=== PATIENT | male | born 1935 | race Hispanic/Latino ===

== ENCOUNTER 2016-10-25 18:16 | Emergency (ER) | payer MEDICARE, MEDICAID ==
[~2016-10-25] VITALS: Ht 165.1 cm; Wt 84.5 kg
[~2016-10-25 18:16] MED LIST: ASPI500T8 PO; CYCL1DRO BOTH_EYES; FINA5TAB9 PO; LISI-567 PO; NPR500T PO
[2016-10-25 18:29] VITALS: BP 154/76; PULSE 65; RESP 16; O2SAT 96
[2016-10-25] MEDS ORDERED: 0.9% Sodium Chloride 1,000 ML IV ONE (19:48)
--- NOTE | 2016-10-25 19:48 | ED.REPORT ---
HPI-General Illness Date of Service Oct 25, 2016 ED Provider: Onel Ledbetter MD A 80 year old male with a history of hypertension, high cholesterol and benign prostate hypertrophy presents to the ED complaining of waxing and waning abdominal pain. The pain is concentrated in the LLQ and occasionally radiates to his back. Describes as aching and sharp. No notable alleviating or exacerbating factors. The pt denies right-sided abdominal pain, chest pain, shortness of breath, headache, black or bloody stools, or vision changes. The pt has been experiencing this pain for one month but has worsened in the last two weeks. He decided to seek medical care today because the pain worsened. Nursing Notes Stated Complaint: ABDOMINAL PAIN Chief Complaint: Male Abdominal Pain Nursing Notes Reviewed: Yes Allergies: Coded Allergies: No Known Allergies (Verified , 06/20/15) Scheduled Aspirin EC (Aspirin EC) 500 Mg Tablet.dr 81 MG PO DAILY Cyclosporine (Restasis) 1 Each Droperette 1 DROP BOTH_EYES BID Finasteride (Finasteride) 5 Mg Tablet 5 MG PO HS Lisinopril (Lisinopril) 20 Mg Tablet 20 MG PO HS Scheduled PRN Naproxen (Naproxen) 500 Mg Tab 500 MG PO Q6H PRN PRN For Pain General Time Seen by MD: 19:44 Chief Complaint Abdominal pain Hx Obtained From: Patient Arrived By: Walk-in Sudden in Onset?: No Onset Occurred: More than a week ago... Symptom Duration: Waxes and wanes Location: : Abdomen Quality: Painful Radiation: : Back Severity: Current: No pain currently Recent Healthcare: No recent hospitalization, Recent doctor visit Similar Sx Previous: No Past Medical History Past Medical History Notes: PCP: Dr. Ledbetter Past Medical History Hypertension Benign prostatic hypertrophy Decreased hearing High cholesterol Past Surgical History None Smoking History Never Smoker Social History Alcohol Use: Denies alcohol use Drug Use: Denies drug use Other Social History: Good social support Ambulatory Status Independent Review of Systems denies black or bloody stools Full Review of Systems Respiratory: Denies: Non-productive cough, Shortness of breath Cardiovascular: Denies: Chest pain GI: Reports: Abdominal pain, Denies: Vomiting Musculoskeletal: Reports: Back pain Skin: Denies Rash Neurologic: Denies: Headache, Vision change Complete sys rev & neg: except as marked. Physical Exam Constitutional: Well-developed, well-nourished. Not diaphoretic. Head: Normocephalic and atraumatic. Mouth/Throat: Oropharynx is clear and moist. No oropharyngeal exudate. Eyes: EOM are normal. Pupils are equal, round, and reactive to light. Neck: Supple, no tracheal deviation. Cardiovascular: Normal rate, regular rhythm. Equal and intact distal pulses throughout. Pulmonary/Chest: Effort normal and breath sounds normal. No respiratory distress. Abdominal: Soft. No distension. There is no point tenderness to palpation, rebound, or guarding. Bowel sounds present. Musculoskeletal: Range of motion grossly intact, moving all extremities. No edema or tenderness appreciated. Neurological: AOx3. Grossly nonfocal exam. Strength and sensation intact and equal to bilateral upper and lower extremities. Skin: Warm and dry, no rashes or pallor appreciated. Psychiatric: Appropriate mood and affect. Behavior appears normal. Vital Signs Vital Signs Date Time Temp Pulse Resp B/P Pulse Ox O2 Delivery O2 Flow Rate FiO2 10/26/16 00:55 37.2 62 16 155/86 97 Room Air 10/26/16 00:44 37.2 62 16 155/86 97 Room Air 10/25/16 18:29 36.9 65 16 154/76 96 Room Air Initial VS: Reviewed Interpretation & Diagnostics Interpretation & Diagnostics: Abdominal US report per US social services technician: gallbladder wall 4 mm, concern for acute cholecystitis no gallstones negative sonographic Hughes's sign Lab Results Interpretation Result Diagram: 10/25/16199910/25/161999 Test 10/25/16 19:55 10/25/16 20:00 Urine Color Yellow (YELLOW) Urine Appearance Clear (CLEAR,HAZY) Urine pH 6.0 (5.0-8.0) Urine Specific [place] 1.005 (1.003-1.035) Urine Protein Negativemg/dL (NEG,TRACE) Urine Glucose (UA) Negativemg/dL (NEGATIVE) Urine Ketones Negativemg/dL (NEGATIVE) Urine Occult Blood Negative (NEGATIVE) Urine Nitrite Negative (NEGATIVE) Urine Bilirubin Negative (NEGATIVE) Urine Urobilinogen Normalmg/dL (NORMAL) Urine Leukocyte Esterase Small (NEGATIVE) Urine RBC 0-2/hpf (0-2) Urine WBC 6-10/hpf (0-5) Urine Epithelial Cells Occasional/hpf (NONE-MOD) Urine Crystals None seen (NONE SEEN) Urine Bacteria Few/hpf (NONE-FEW) Urine Hyaline Casts None/lpf (NONE) Urine Granular Casts None seen (NONE SEEN) Urine Waxy Casts None seen (NONE SEEN) Urine Red Blood Cell Casts None seen (NONE SEEN) Urine White Blood Cell Casts None seen (NONE SEEN) Urine Mucus None seen (None Seen) Urine Trichomonas None seen (NONE SEEN) Urine Yeast None (NONE SEEN) Urinalysis Comment None Urine Culture Reflexed Indicated White Blood Count 7.2th/mm3 (3.8-10.1) Red Blood Count 4.92mil/mm3 (4.40-5.80) Hemoglobin 15.0g/dL (13.8-17.2) Hematocrit 43.3% (41.0-50.0) Mean Corpuscular Volume 88.0fL (81-100) Mean Corpuscular Hemoglobin 30.5pg (27.0-35.0) Mean Corpuscular Hemoglobin Concent 34.6% (32.0-37.0) Red Cell Distribution Width 12.7% (12.3-15.4) Platelet Count 180bil/L (150-400) Neutrophils (%) (Auto) 52.3% (40-74) Lymphocytes (%) (Auto) 30.2% (14-46) Monocytes (%) (Auto) 11.3% (4-12) Eosinophils (%) (Auto) 5.7% (0-5) Basophils (%) (Auto) 0.4% (0-3) Prothrombin Time 10.3sec (8.1-12.5) Prothromb Time International Ratio 0.96ratio Sodium Level 137mEq/L (134-144) Potassium Level 4.2mEq/L (3.5-5.2) Chloride Level 101mEq/L (97-108) Carbon Dioxide Level 21mmol/L (18-29) Blood Urea Nitrogen 12mg/dL (8-27) Creatinine 0.66mg/dL (0.76-1.27) Estimat Glomerular Filtration Rate 124mL/min (>59) Glucose Level 95mg/dL (60-99) Lactic Acid Level 1.0mmol/L (0.4-2.0) Calcium Level 9.3mg/dL (8.5-10.1) Magnesium Level 2.2mg/dL (1.6-2.6) Total Bilirubin 0.7mg/dL (0.0-1.2) Aspartate Amino Transf (AST/SGOT) 122U/L (0-50) Alanine Aminotransferase (ALT/SGPT) 314U/L (0-44) Alkaline Phosphatase 88U/L (25-160) Total Protein 7.7g/dL (6.4-8.4) Albumin 4.1g/dL (3.4-5.0) Lipase 24U/L (13-60) ECG Interpretation ECG Interpretation: normal sinus rhythm with a rate of 55 left axis deviation Time: 20:27 Interpreted by: ED physician CT Abd / Pelvis Interpretation IMPRESSION: 1. Colonic diverticulosis. No CT findings to suggest acute diverticulitis. 2. A 3 mm cortical calcification in the right kidney. No hydronephrosis. 3. Enlarged prostate. Dictated by: Blade Carlos M.D. on 10/25/2016 at 21:38 Approved by: Blade Carlos M.D. on 10/25/2016 at 21:45 Interpretation / Wet Read by: Interpret - Radiologist Re-Eval/Medical Decision Med Decision/Clinical Course CBC and CMP grossly within normal limits with the exception of the patient's LFTs; AST of 122, ALT of 314. CT of the patient's abdomen as per above, reviewed; she does have some diverticulosis, however no evidence of diverticulitis and not consistent with his exam. Given her elevated LFTs, decision made to obtain an ultrasound of the patient's gallbladder. The gallbladder wall is thickened to approximate 4 mm, however no sonographic Hughes sign, no pericholecystic fluid. I discussed these findings with Dr. Escobedo as noted below. Discussed plan with the patient at length and need for close outpatient follow-up. He does have a mild urinary tract infection and I plan to treat this with ciprofloxacin. Careful return precautions were discussed at length; patient agreeable to the plan as stated, no further questions. Time of Eval: 00:21 Patient Status: Condition improved Re-Evaluation/Progress Note: Pt rechecked, who is resting comfortably. The diagnosis and plan for discharge are discussed. The pt understands and agrees with the plan. All questions are addressed at this time. Consultation : Referral / Consult Name: Gunnar Escobedo MD Consulted With: Surgeon Call Returned at: 00:11 Road Machine Runner: Agrees with eval, Agrees with plan Note: Spoke with Dr. Escobedo, surgeon, regarding pt's case. Dr. Escobedo is not concerned due to the negative sonographic Hughes's sign and the 4 mm gallbladder wall. He does not think that the pt needs emergent surgical evaluation at this time and can follow up as an outpatient. Counseled Regarding: Diagnosis, Lab results, Need for follow-up, When/why to return to ED Discharge & Departure Primary Impression: Transaminitis Additional Impressions: Diverticulosis Diverticulosis site: unspecified location Diverticulosis bleeding: diverticulosis without bleeding Qualified Code: K57.90 - Diverticulosis of intestine, part unspecified, without perforation or abscess without bleeding UTI (urinary tract infection) Urinary tract infection type: site unspecified Hematuria presence: without hematuria Qualified Code: N39.0 - Urinary tract infection, site not specified Abdominal pain Abdominal location: left lower quadrant Qualified Code: R10.32 - Left lower quadrant pain Disposition: Home Discharge Condition All VS Reviewed: Yes Condition: Improved Patient Instructions: Acute Abdominal Pain (ED), Diverticulosis (ED), Urinary Tract Infection in Men (ED) Additional Instructions: Thank you for allowing us to be a part of your care today. Take the antibiotics as prescribed. Be sure to call [facility] to arrange a follow up appointment on Thursday for further evaluation. Return to the emergency department if you develop any new or worsening symptoms including worsening abdominal pain, vomiting, fever, or any other symptoms of concern to you. Enedina por permitirnos ser parte de price atencin hoy en da. Alvaro los antibi ticos prescritos. No olvide llamar [facility] para concertar jeevan hien el de seguimiento para la evaluacin adicional. Volver al servicio de urgencias si presenta cualquier sntoma nuevo o que empeora nimisha empeoramiento de dolor abdominal, vmitos, fiebre o cualquier otro sntoma de preocupacin para usted. Referrals: [facility] (PCP) Scribe Attestation Portions of this note were transcribed by Clarisse Anna. I, Dr. Ledbetter personally performed the history, physical exam and medical decision-making; I reviewed and confirmed the accuracy of the information in the transcribed note. Signed by: Arun Parker, 10/26/2016 and 0032. copies to: [facility] William B MD Oct 25, 2016 19:48 CLARISSE ANNA Oct 25, 2016 20:57
[2016-10-25] MEDS ORDERED: HYDROmorphone 0.5 mg/0.5 mL iSecure Syringe IVPUSH PRN (19:50)
[2016-10-25] MEDS ORDERED: Ondansetron 2 mg/mL 2 mL Inj IVPUSH PRN (19:50)
[2016-10-25 20:11] LABS: APPEARANCE,URINE CLEAR (CLEAR,HAZY); COLOR,URINE YELLOW (YELLOW); OCCULT BLOOD,URINE NEGATIVE (NEGATIVE); UROBILINOGEN,URINE NORMAL (NORMAL)
[2016-10-25 20:17] LABS: BASOPHILS % (AUTO) 0.4 % (0-3); EOSINOPHILS % (AUTO) 5.7 % (0-5); MONOCYTES % (AUTO) 11.3 % (4-12); Mean Corpuscular Hemoglobin 30.5 pg (27.0-35.0); NEUTROPHILS % (AUTO) 52.3 % (40-74); Platelet Count 180 bil/L (150-400)
[2016-10-25 20:32] LABS: INR 0.96 ratio
[2016-10-25 20:39] LABS: Magnesium 2.2 mg/dL (1.6-2.6)
--- NOTE | 2016-10-25 21:47 | DRSVH ---
PROCEDURE: CT ABDOMEN AND PELVIS WITH CONTRAST ([id number]) INDICATIONS: LLQ pain radiating to back TECHNIQUE: After the administration of intravenous contrast, 5 mm thick sections acquired from the diaphragm to the symphysis. 5 mm coronal and sagittal reformats were acquired. For radiation dose reduction, the following was used: automated exposure control, adjustment of mA and/or kV according to patient siz e. COMPARISON: None. FINDINGS: Image quality: Excellent. ABDOMEN: Lung bases: Lung bases are clear. Heart size is normal. Solid organs: There is a 3 mm indeterminate hypodense nodule in the left hepatic lobe. Liver and spl een are normal in size and enhancement. Gallbladder is normal. Biliary system is non dilated. Panc reas enhances normally. No adrenal nodules. Kidneys demonstrate normal size and enhancement, withou t hydronephrosis. There is a 3 mm calcification in the superior pole of the right kidney with associ ated cortical scar. Peritoneum and bowel: Bowel loops demonstrate normal wall thickness and caliber. Numerous colonic d iverticula are present scattered in colon. No evidence for active diverticulitis. No free fluid or ai r. Nodes and vessels: No retroperitoneal or mesenteric adenopathy by size criteria. Aorta and inferior vena cava are normal in size. Miscellaneous: No ventral hernias. PELVIS: Genitourinary: Bladder wall thickness is normal. Prostate is enlarged. Miscellaneous: No inguinal hernias or adenopathy. Bones: No suspicious bony lesions. No vertebral body compression fractures. Degenerative changes i n lumbar spine. IMPRESSION: 1. Colonic diverticulosis. No CT findings to suggest acute diverticulitis. 2. A 3 mm cortical calcification in the right kidney. No hydronephrosis. 3. Enlarged prostate. Dictated by: Blade Carlos M.D. on 10/25/2016 at 21:38 Approved by: Blade Carlos M.D. on 10/25/2016 at 21:45
[2016-10-26] MEDS ORDERED: _Ciprofloxacin 500 mg Tablet PO SCH (00:25)
[2016-10-26 00:44] VITALS: BP 155/86; PULSE 62; RESP 16; O2SAT 97
[2016-10-26 00:55] VITALS: BP 155/86; PULSE 62; RESP 16; O2SAT 97
--- NOTE | 2016-10-26 08:54 | DRSVH ---
PROCEDURE: US ABDOMEN, LIMITED ([id number]) INDICATIONS: abdominal pain, transaminitis; please do RUQ TECHNIQUE: Real-time focused scanning was performed of the abdomen, with image documentation. COMPARISON: None. FINDINGS: Gallbladder wall measures 4 mm in thickness. No gallbladder calculi nor sludge. No perichol ecystic fluid. Negative sonographic Hughes's sign. The left hepatic lobe abnormality seen by CT is no t seen by ultrasound. IMPRESSION: 1. Mild gallbladder wall thickening, without associated sonographic Hughes sign. Clinical correlation for developing cholecystitis is recommended. 2. Negative evaluation of the left hepatic lobe by ultrasound. Dictated by: Gisel Coyle M.D. on 10/26/2016 at 8:51 Approved by: Gisel Coyle M.D. on 10/26/2016 at 8:52
== END 2016-10-26 00:56 | disposition home or self-care (01) ==
LOC: SED 18:16
DX: K57.90 Diverticulosis of intestine, part unspecified, without perforation or abscess without bleeding (principal); N39.0 Urinary tract infection, site not specified; R74.0 Nonspecific elevation of levels of transaminase and lactic acid dehydrogenase [LDH]; I10 Essential (primary) hypertension; E78.5 Hyperlipidemia, unspecified; Z79.82 Long term (current) use of aspirin
CPT/HCPCS: 36415; 74177; 76705; 80053; 81000; 83605; 83690; 83735; 85025; 85610; 87086; 93005; 96361; 96374; 96375; 99285; J1170; J2405; J7030; Q9967

== ENCOUNTER 2016-10-27 15:26 | Emergency (ER) | payer MEDICARE, MEDICAID ==
[~2016-10-27] VITALS: Ht 175.3 cm; Wt 83.6 kg
[2016-10-27 16:13] VITALS: BP 157/84; PULSE 62; RESP 12; O2SAT 99
--- NOTE | 2016-10-27 17:49 | ED.REPORT ---
HPI-Abd Pain M 40 and Over Date of Service Oct 27, 2016 ED Provider: Dr. Acuna Pt is a 80 y/o male w/ a hx of hypertension, high cholesterol, diverticulosis and benign prostate hypertrophy presenting to the ED c/o LLQ abdominal pain with radiation to the back onset 2 days ago. The patient was seen for the same symptoms here in the ED 2 days ago at which point labs, US, and CT were performed. Labs showed transaminitis which prompted a RUQ US which showed mild gallbladder wall thickening without signs of cholecystitis. CT showed colonic diverticulosis without signs of diverticulitis as well as right nephrolithiasis without hydronephrosis. He was also discharged with a prescription for Ciprofloxacin for a possible UTI for which the urine culture is negative. He was discharged in good condition and told to return if his pain worsened or persisted, which it has, prompting his return today. Nursing Notes Stated Complaint: STOMACH PAIN Chief Complaint: Male Abdominal Pain Nursing Notes Reviewed: Yes Allergies: Coded Allergies: No Known Allergies (Verified , 06/20/15) Scheduled Aspirin EC (Aspirin EC) 500 Mg Tablet.dr 81 MG PO DAILY Cyclosporine (Restasis) 1 Each Droperette 1 DROP BOTH_EYES BID Finasteride (Finasteride) 5 Mg Tablet 5 MG PO HS Lisinopril (Lisinopril) 20 Mg Tablet 20 MG PO HS Scheduled PRN Naproxen (Naproxen) 500 Mg Tab 500 MG PO Q6H PRN PRN For Pain General Time Seen by MD: 17:48 Chief Complaint Abdominal pain Hx Obtained From: Patient, Son Arrived By: Walk-in Sudden in Onset?: Yes Onset Occurred: 2 days ago Symptom Duration: Since onset Location: : LLQ Quality: Painful Severity: Current: Moderate Severity: Maximum: Severe Recent Healthcare: Recent doctor visit, Recent testing Past Medical History Past Medical History Notes: PCP: Dr. Ledbetter Past Medical History Diverticulosis Hypertension Benign prostatic hypertrophy Decreased hearing Hypercholesteremia Past Surgical History None Smoking History Never Smoker Social History Alcohol Use: Denies alcohol use Drug Use: Denies drug use Other Social History: Good social support Ambulatory Status Independent Review of Systems GI: Reports: Abdominal pain Complete sys rev & neg: except as marked. Physical Exam Initial Vital Signs Vital Signs (First) Date Time Temp Pulse Resp B/P Pulse Ox O2 Delivery O2 Flow Rate FiO2 10/27/16 16:13 36.6 62 12 157/84 99 Room Air Initial VS: Reviewed, Vital signs normal Head / Eyes: Atraumatic, Normocephalic, PERRL Neck: Supple, Non-tender, Full range of motion Extremities: Vascular intact, Neuro intact, No swelling, No tenderness Skin: Warm, Dry, No cyanosis Neurologic: Alert, Oriented, Nonfocal General/Constitutional: Awake, Alert, Cooperative Respiratory / Chest: Atraumatic, Breath sounds NL, Breath sounds = bilat, No respiratory distress, No rales, No rhonchi, No wheezing Cardiovascular: Heart rate NL, Regular rhythm, Heart sounds NL, No gallop, No murmurs, No rubs Abdomen: Atraumatic, Soft, No guarding, No rebound Tenderness/Guarding/Rebound: Positive: Tender LLQ... (Mild) Back: Atraumatic, Full range of motion, Painless range of motion Interpretation & Diagnostics Lab Results Interpretation Result Diagram: 10/27/16 1814 10/27/16 1814 Test 10/27/16 18:14 10/27/16 18:39 White Blood Count 7.2th/mm3 (3.8-10.1) Red Blood Count 5.10mil/mm3 (4.40-5.80) Hemoglobin 15.3g/dL (13.8-17.2) Hematocrit 44.5% (41.0-50.0) Mean Corpuscular Volume 87.3fL (81-100) Mean Corpuscular Hemoglobin 30.0pg (27.0-35.0) Mean Corpuscular Hemoglobin Concent 34.4% (32.0-37.0) Red Cell Distribution Width 12.6% (12.3-15.4) Platelet Count 184bil/L (150-400) Neutrophils (%) (Auto) 57.1% (40-74) Lymphocytes (%) (Auto) 28.8% (14-46) Monocytes (%) (Auto) 10.1% (4-12) Eosinophils (%) (Auto) 3.5% (0-5) Basophils (%) (Auto) 0.4% (0-3) Sodium Level 138mEq/L (134-144) Potassium Level 4.1mEq/L (3.5-5.2) Chloride Level 101mEq/L (97-108) Carbon Dioxide Level 23mmol/L (18-29) Blood Urea Nitrogen 10mg/dL (8-27) Creatinine 0.67mg/dL (0.76-1.27) Estimat Glomerular Filtration Rate 122mL/min (>59) Glucose Level 97mg/dL (60-99) Lactic Acid Level 0.8mmol/L (0.4-2.0) Calcium Level 9.4mg/dL (8.5-10.1) Magnesium Level 2.1mg/dL (1.6-2.6) Total Bilirubin 0.9mg/dL (0.0-1.2) Aspartate Amino Transf (AST/SGOT) 125U/L (0-50) Alanine Aminotransferase (ALT/SGPT) 288U/L (0-44) Alkaline Phosphatase 82U/L (25-160) Troponin T < 0.010ug/L (0.0-0.011) Total Protein 8.0g/dL (6.4-8.4) Albumin 4.4g/dL (3.4-5.0) Lipase 21U/L (13-60) Urine Color Straw (YELLOW) Urine Appearance Clear (CLEAR,HAZY) Urine pH 6.5 (5.0-8.0) Urine Specific [place] 1.005 (1.003-1.035) Urine Protein Negativemg/dL (NEG,TRACE) Urine Glucose (UA) Negativemg/dL (NEGATIVE) Urine Ketones Negativemg/dL (NEGATIVE) Urine Occult Blood Negative (NEGATIVE) Urine Nitrite Negative (NEGATIVE) Urine Bilirubin Negative (NEGATIVE) Urine Urobilinogen Normalmg/dL (NORMAL) Urine Leukocyte Esterase Trace (NEGATIVE) Urine RBC 0-2/hpf (0-2) Urine WBC 0-5/hpf (0-5) Urine Epithelial Cells Occasional/hpf (NONE-MOD) Urine Crystals None seen (NONE SEEN) Urine Bacteria Few/hpf (NONE-FEW) Urine Hyaline Casts None/lpf (NONE) Urine Granular Casts None seen (NONE SEEN) Urine Waxy Casts None seen (NONE SEEN) Urine Red Blood Cell Casts None seen (NONE SEEN) Urine White Blood Cell Casts None seen (NONE SEEN) Urine Mucus None seen (None Seen) Urine Trichomonas None seen (NONE SEEN) Urine Yeast None (NONE SEEN) Urinalysis Comment None Urine Culture Reflexed Indicated ECG Interpretation ECG Interpretation: Normal sinus rhythm. Rate 57 Left axis deviation. Time: 18:18 Interpreted by: ED physician CT Abd / Pelvis Interpretation IMPRESSION: 1. Sigmoid colon diverticulosis again noted, without acute diverticulitis. 2. Enlarged prostate gland would be consistent with benign prostatic hyperplasia. Concomitant prostate neoplasm cannot be excluded by CT imaging appearances. 3. Diffuse fatty infiltration of the liver. 4. Lateral right renal cortical scarring as before, consistent with remote pyelonephritis. Dictated by: Venkat Cunningham M.D. on 10/27/2016 at 20:18 Approved by: Venkat Cunningham M.D. on 10/27/2016 at 20:25 Study type: Abdominal CT IV contrast Interpretation / Wet Read by: Interpret - Radiologist Re-Eval/Medical Decision Med Decision/Clinical Course Mr. Beltre felt much better after fluids and analgesia. His abdomen was normal longer hurting. His abdomen was soft and nontender. He was tolerating liquids. Diagnostics were all normal and reassuring. Causes pain is uncertain however he seems to be doing really well. The CAT scan is unchanged. I will dispense him a short course of Compton for pain and have next day follow-up. Source of Hx: Old records Time of Eval: 21:20 Patient Status: Condition improved Re-Evaluation/Progress Note: Rechecked pt. Discussed lab results, imaging results, diagnosis and plan to discharge. Pt understands and agrees with the plan. F/U instructions and RTER warning given. All questions addressed. Counseled Regarding: Diagnosis, Lab results, Need for follow-up, When/why to return to ED Discharge & Departure Primary Impression: Abdominal pain, left lower quadrant Disposition: Home Vital Signs - All Vital Signs Date Time Temp Pulse Resp B/P Pulse Ox O2 Delivery O2 Flow Rate FiO2 10/27/16 21:51 59 18 140/90 96 Room Air 10/27/16 19:14 56 20 124/79 95 Room Air 10/27/16 17:53 36.9 60 15 157/71 98 Room Air 10/27/16 16:13 36.6 62 12 157/84 99 Room Air )( All Prior VS Reviewed: Yes Condition: Stable Patient Instructions: Acute Abdominal Pain (ED) Additional Instructions: Your ECG, imaging and laboratory work was normal and reassuring. Your urine results show no signs of infection.No dangerous cause of your pain was found. Take 1-2 Compton every 6 hours as needed for pain. Drink plenty of fluids. Call your primary care tomorrow morning to set up follow-up. I recommend getting a colonoscopy for further evaluation of your symptoms. Do not drive tonight. Do not drive or drink alcohol or consume acetaminophen while taking the Compton. If you develop any new or worsening pain come back to the emergency department. It was very nice meeting you. Krishna ECG, imgenes y trabajo de laboratorio fue normal y tranquilizador. Los resultados de krishna orina no muestran signos de infeccin. No se encontr causa peligrosa de krishna dolor. [place] 1-2 Compton cada 6 horas segn sea necesario para el dolor. Beber mucho lquido. Llame a krishna atencin primaria maana por la maana para establecer el seguimiento. Recomiendo obtener jeevan colonoscopia para jeevan evaluacin ms profunda de shar sntomas. No manejes esta noche. No conduzca ni nora alcohol ni consuma acetaminofn mientras carleen el Compton. Si desarrolla alg n dolor nuevo o que empeora regrese al servicio de urgencias. Fue muy agradable conocerte. Referrals: [facility] ([facility]) Scribe Attestation Portions of this note were transcribed by Shannon Guajardo. I,, personally performed the history, physical exam and medical decision-making;I reviewed and confirmed the accuracy of the information in the transcribed note. Signed by Arun Mays. 10/27/16 21:41 copies to: [facility] Todd P DO Oct 27, 2016 17:49 ULISES CHAMORRO Oct 27, 2016 17:59 Shannon Guajardo Oct 27, 2016 18:10
[2016-10-27 17:53] VITALS: BP 157/71; PULSE 60; RESP 15; O2SAT 98
[2016-10-27] MEDS ORDERED: Ondansetron 2 mg/mL 2 mL Inj IVPUSH PRN (18:10)
[2016-10-27] MEDS ORDERED: HYDROmorphone 0.5 mg/0.5 mL iSecure Syringe IVPUSH PRN (18:10)
[2016-10-27 18:31] LABS: BASOPHILS % (AUTO) 0.4 % (0-3); EOSINOPHILS % (AUTO) 3.5 % (0-5); MONOCYTES % (AUTO) 10.1 % (4-12); Mean Corpuscular Volume 87.3 fL (81-100); NEUTROPHILS % (AUTO) 57.1 % (40-74); Platelet Count 184 bil/L (150-400)
[2016-10-27 19:10] LABS: Magnesium 2.1 mg/dL (1.6-2.6)
[2016-10-27 19:11] LABS: Lipase 21 U/L (13-60)
[2016-10-27 19:14] VITALS: BP 124/79; PULSE 56; RESP 20; O2SAT 95
[2016-10-27 19:25] LABS: APPEARANCE,URINE CLEAR (CLEAR,HAZY); COLOR,URINE STRAW (YELLOW); OCCULT BLOOD,URINE NEGATIVE (NEGATIVE); PH,URINE 6.5 (5.0-8.0); UROBILINOGEN,URINE NORMAL (NORMAL)
[2016-10-27 19:36] LABS: TROPONIN T < 0.010 ug/L (0.0-0.011)
--- NOTE | 2016-10-27 20:27 | DRSVH ---
PROCEDURE: CT ABDOMEN AND PELVIS WITH CONTRAST ([id number]) INDICATIONS: 80 year-old male with worsening left lower quadrant abdominal pain. TECHNIQUE: After the administration of intravenous contrast, 5 mm thick sections acquired from the diaphragm to the symphysis. 5 mm coronal and sagittal reformats were acquired. For radiation dose reduction, the following was used: automated exposure control, adjustment of mA and/or kV according to patient alisson lind. COMPARISON: [facility], CT, CT ABD PELVIS W CON, 10/25/2016, 21:18. FINDINGS: Image quality: Excellent. ABDOMEN: Lung bases: Lung bases are clear. Heart size is normal. Solid organs: Liver and spleen are normal in size, with diffuse fatty infiltration of the liver. Ga llbladder wall thickness is normal. Biliary system is non dilated. Pancreas enhances normally. No adrenal nodules. Kidneys demonstrate normal size and enhancement, without hydronephrosis. Lateral ri ght renal cortical scarring is again noted, with associated punctate dystrophic calcification. Peritoneum and bowel: Bowel loops demonstrate normal wall thickness and caliber. The appendix is no rmal in caliber. There is sigmoid colon diverticulosis. No free fluid or air. Nodes and vessels: No retroperitoneal or mesenteric adenopathy by size criteria. Aorta and inferior vena cava are normal in size, with scattered aortoiliac atherosclerosis. Miscellaneous: No ventral hernias. PELVIS: Genitourinary: Bladder wall thickness is normal. Prostate gland is enlarged. Miscellaneous: No inguinal hernias or adenopathy. Bones: No suspicious bony lesions. No vertebral body compression fractures. IMPRESSION: 1. Sigmoid colon diverticulosis again noted, without acute diverticulitis. 2. Enlarged prostate gland would be consistent with benign prostatic hyperplasia. Concomitant prostat e neoplasm cannot be excluded by CT imaging appearances. 3. Diffuse fatty infiltration of the liver. 4. Lateral right renal cortical scarring as before, consistent with remote pyelonephritis. Dictated by: Venkat Cunningham M.D. on 10/27/2016 at 20:18 Approved by: Venkat Cunningham M.D. on 10/27/2016 at 20:25
[2016-10-27] MEDS ORDERED: _Ondansetron ODT 4 mg Tablet PO PRN (21:05)
[2016-10-27] MEDS ORDERED: _HYDROcodone/APAP 5-325 mg Tablet PO PRN (21:05)
[2016-10-27 21:51] VITALS: BP 140/90; PULSE 59; RESP 18; O2SAT 96
== END 2016-10-27 21:52 | disposition home or self-care (01) ==
LOC: SED 15:26
DX: R10.32 Left lower quadrant pain (principal); K57.30 Diverticulosis of large intestine without perforation or abscess without bleeding; N20.0 Calculus of kidney; I10 Essential (primary) hypertension; E78.00 Pure hypercholesterolemia, unspecified; N40.0 Benign prostatic hyperplasia without lower urinary tract symptoms; H91.90 Unspecified hearing loss, unspecified ear; Z79.82 Long term (current) use of aspirin
CPT/HCPCS: 36415; 74177; 80053; 81000; 83605; 83690; 83735; 84484; 85025; 87086; 93005; 96374; 96375; 99285; J1170; J2405; Q9967

== ENCOUNTER → 2016-12-12 | Day surgery (SDC) | payer MEDICARE, MEDICAID ==
[~2016-12-12] VITALS: Ht 172.7 cm; Wt 84.4 kg
[~2016-12-12] MED LIST changes: +0.9% Sodium Chloride 1,000 ML IV SCH; +LORA10CA9 PO; +MAGN100T5 PO; +Sodium Chloride LOK Flush 10 mL Syringe IV PRN; +fentaNYL-PF 50 mCg/mL 2 mL Inj IVPUSH PRN
[2016-12-12 09:55] VITALS: BP 150/83; PULSE 71; RESP 16; O2SAT 96
[2016-12-12 10:58] VITALS: BP 121/69; PULSE 68; RESP 15; O2SAT 98
[2016-12-12 11:05] VITALS: BP 114/69; PULSE 62; RESP 15; O2SAT 98
[2016-12-12 11:17] VITALS: BP 137/77; PULSE 97; RESP 17; O2SAT 97
--- NOTE | 2016-12-12 14:13 | ENDO ---
[address] [address] ENDOSCOPY PROCEDURE PATIENT: ALTON ESPAÑA : 1935 MR#: [id number] ADMIT: 12/12/2016 JOB ID: [id number] TITLE OF OPERATION: Colonoscopy. PREOPERATIVE DIAGNOSIS(ES): Guaiac-positive stools. POSTOPERATIVE DIAGNOSIS(ES): 1. Mild sigmoid diverticulosis. 2. Small internal hemorrhoids. ANESTHESIA: Fentanyl 75 mcg and Versed 2 mg IV administered. COMPLICATIONS: None. BLOOD LOSS: Minimal. DESCRIPTION OF PROCEDURE: After the risks and benefits were explained to the patient, informed consent was obtained. After anesthesia was administered, the colonoscope was inserted from the rectum to the terminal ileum and the mucosa carefully examined. Prep of the patient was fair. After the procedure was done, the scope withdrawn and the procedure terminated. FINDINGS: Upon inspection of the anus, no masses, hemorrhoids, ulcers, or fissures that were seen. Throughout the entire examination there was mild sigmoid diverticulosis. No polyps, masses, or lesions. Retroflexion showed small internal hemorrhoids. IMPRESSION: 1. Small internal hemorrhoids. 2. Mild sigmoid diverticulosis. RECOMMENDATIONS: 1. High-fiber diet. 2. Follow up in GI Clinic as needed.
== END | disposition home or self-care (01) ==
LOC: END 01:02
PROVIDERS: ATTEND Internal Medicine Gastroenterology
DX: K57.30 Diverticulosis of large intestine without perforation or abscess without bleeding (principal); K64.8 Other hemorrhoids; R19.5 Other fecal abnormalities; R51 Headache; N40.0 Benign prostatic hyperplasia without lower urinary tract symptoms; Z79.82 Long term (current) use of aspirin; Z79.899 Other long term (current) drug therapy
CPT/HCPCS: 45378; G0500; J2250; J3010; J7030